=== PATIENT | female | born 1985 | race African-American/Black ===

== ENCOUNTER 2020-07-10 11:09 | Outpatient (CLI) | payer OTHER ==
[2020-07-10 16:39] VITALS: BP 121/75
== END 2020-07-10 17:31 | disposition home or self-care (01) ==
LOC: LAB 11:09 → APU 16:07 → LAB 17:31
PROVIDERS: ATTEND Advanced Practice Midwife
DX: O26.893 Other specified pregnancy related conditions, third trimester (principal); Z67.41 Type O blood, Rh negative; Z3A.29 29 weeks gestation of pregnancy
CPT/HCPCS: 59025; 86850; 86900; 86901; 96372; J2790

== ENCOUNTER 2020-07-24 16:45 | Outpatient (CLI) | payer OTHER ==
[2020-07-24 18:05] VITALS: BP 110/62
[2020-07-24] MEDS ORDERED: LACTATED RINGERS 1,000 ML IV ONE (19:03)
[2020-07-24 19:37] LABS: Bacteria,Urine 4+ /HPF (Negative); Bilirubin,Urine NEG (Negative); Blood,Urine MOD (Negative); Color,Urine Yellow (Yellow); Mucus,Urine 2+ /HPF; Urobilinogen,Urine < 2.0 mg/dL (<2.0)
[2020-07-24] MEDS ORDERED: cefTRIAXone/NS 1 GM/50 ML 1 GM/50 ML BAG IV ONE (21:00)
== END 2020-07-24 22:10 | disposition home or self-care (01) ==
LOC: NM 16:45 → APU 16:47 → NM 22:10
DX: O26.893 Other specified pregnancy related conditions, third trimester (principal); M54.5 Low back pain; M79.651 Pain in right thigh; O09.523 Supervision of elderly multigravida, third trimester; O47.03 False labor before 37 completed weeks of gestation, third trimester; Z3A.31 31 weeks gestation of pregnancy
CPT/HCPCS: 59025; 81001; 87086; 96361; 96365; J0696; J7120; 96360

== ENCOUNTER 2020-09-12 12:42 | Outpatient (CLI) | payer OTHER ==
[2020-09-12 15:50] VITALS: BP 104/59
--- NOTE | 2020-09-12 17:10 | Ultrasound Report ---
ULTRASOUND OBSTETRIC LIMITED ULTRASOUND BIOPHYSICAL PROFILE INDICATION / CLINICAL INFORMATION: well-being. Decreased movement. PATRICE Clinical Gestational Age (GA): 37.4 weeks.days COMPARISON: None available. FINDINGS: BREATHING MOVEMENT = 2 GROSS BODY MOVEMENT = 2 TONE = 2 QUALITATIVE AMNIOTIC FLUID VOLUME = 2 TOTAL BIOPHYSICAL SCORE = 8/8 HEART RATE (beats per minute): 143 AMNIOTIC FLUID INDEX (cm) = 7.9 (normal = 7-24 cm) PRESENTATION: Cephalic. ADDITIONAL FINDINGS: None. IMPRESSION: 1. Biophysical Score = 8/8 2. PATRICE 7.9 cm. Signer Name: Eric Lawler MD Signed: 09/12/2020 5:05 PM Workstation Name: [id number]
== END 2020-09-12 16:37 | disposition home or self-care (01) ==
LOC: TRG 12:42 → APU 12:44 → TRG 16:37
DX: Z34.93 Encounter for supervision of normal pregnancy, unspecified, third trimester (principal); Z3A.38 38 weeks gestation of pregnancy
CPT/HCPCS: 76815; 76819

== ENCOUNTER 2020-09-16 15:29 | Inpatient (IN) | payer MEDICAID, OTHER ==
[2020-09-16] MEDS ORDERED: CARBOPROST TROMETHAMINE 250 MCG/1 ML INJ IM PRN (19:28)
[2020-09-16] MEDS ORDERED: LOPERAMIDE 2 MG CAP PO PRN (19:28)
[2020-09-16] MEDS ORDERED: METHYLERGONOVINE MALEATE 0.2 MG/ML VIAL IM PRN (19:28)
[2020-09-16] MEDS ORDERED: ACETAMINOPHEN 325 MG TAB PO PRN (19:28)
[2020-09-16] MEDS ORDERED: LIDOCAINE (2%) 20 MG/1 ML VIAL 20 ML MDV INFILTRATI ONE (19:28)
[2020-09-16] MEDS ORDERED: ePHEDrine SULFATE 50 MG/1 ML INJ IV PRN ×2 (19:28→23:14)
[2020-09-16] MEDS ORDERED: MINERAL OIL 30 ML ORAL LIQD PO PRN (19:28)
[2020-09-16] MEDS ORDERED: miSOPROStol 200 MCG TAB PR PRN (19:28)
[2020-09-16] MEDS ORDERED: fentaNYL 100 MCG/2 ML INJ IV PRN (19:28)
[2020-09-16] MEDS ORDERED: TERBUTALINE 1 MG/1 ML INJ SUB-Q PRN (19:28)
[2020-09-16] MEDS ORDERED: NalbUPHINE 10 MG/1 ML INJ IV PRN (19:28)
[2020-09-16] MEDS ORDERED: PROMETHAZINE 25 MG TAB PO PRN (19:28)
[2020-09-16] MEDS ORDERED: OXYTOCIN 10 UNIT/1 ML INJ IM PRN (19:28)
[2020-09-16] MEDS ORDERED: LACTATED RINGERS 1,000 ML IV SCH (19:30)
[2020-09-16] MEDS ORDERED: OXYTOCIN DRIP 30 UNITS/500 ML BAG IV SCH ×2 (20:00)
[2020-09-16 20:34] LABS: Hematocrit 27.7 % (30.3-42.9); Hemoglobin 8.6 gm/dl (10.1-14.3); Mean Corpuscular HGB Conc 31 % (30-34); Red Blood Count 4.14 M/mm3 (3.65-5.03); Red Cell Distribution Width 18.8 % (13.2-15.2)
[2020-09-16 20:46] LABS: Mean Corpuscular Volume 67 fl (79-97); Platelet Count 435 K/mm3 (140-440)
[2020-09-16] MEDS ORDERED: AMPICILLIN/NS 2 GM/100 ML 2 GM/100 ML BAG IV ONE (21:00)
[2020-09-16] MEDS ORDERED: GENTAMICIN/NS 100 MG/100 ML 100 MG/100 ML BAG IV ONE (22:17)
--- NOTE | 2020-09-16 23:02 | History and Physical Report ---
History of Present Illness Date of examination: 09/16/20 Date of admission: 09/16/20 19:28 Chief complaint: lower abd pain and leakage of fluid in triage History of present illness: at 38.2wks by LMP c/w U/S. care at [facility] and [facility]. U/S with bilateral hydronephrosis, that was persistent on the left at 36wks gestation. Pt here for painful ctx and while in triage she had PROM hence admission. Pt admitted to movement, denies vag bleed or headache. Pt was Rh negative and order given for rhogam on 07/02/20. Rubella immune, HIV and RPR and HepBsAg neg. GC/Chlam neg. Past History Past Medical History: no pertinent history Past Surgical History: no surgical history Family/Genetic History: none Social history: no significant social history - Obstetrical History Expected Date of Delivery: 09/29/20 Actual Gestation: 38 Week(s) 2 Day(s) : 2 Hx # Term Pregnancies: 1 Number of Living Children: 1 Medications and Allergies Allergies Allergy/AdvReac Type Severity Reaction Status Date / Time No Known Allergies Allergy Verified 07/24/20 19:03 Home Medications Medication Instructions Recorded Confirmed Last Taken Type No Known Home Medications [No 09/16/20 09/16/20 Unknown History Reported Home Medications] Active Meds: Active Medications Acetaminophen (Acetaminophen 325 Mg Tab) 650 mg PO Q4H PRN PRN Reason: Pain, Mild (1-3) Carboprost Tromethamine (Carboprost Tromethamine 250 Mcg/1 Ml Inj) 250 mcg IM ONCE PRN PRN Reason: Uterine Bleeding Ephedrine Sulfate (Ephedrine Sulfate 50 Mg/1 Ml Inj) 10 mg IV Q2M PRN PRN Reason: Hypotension Fentanyl (Fentanyl 100 Mcg/2 Ml Inj) 100 mcg IV Q2H PRN PRN Reason: Pain,Severe (7-10) LABOR PAIN Oxytocin/Sodium Chloride (Pitocin/Ns 30 Unit/500ml) 30 units in 500 mls @ 2 mls/hr IV TITR NELIDA; Protocol Last Titration: 09/16/20 22:30 Dose: 4 mls/hr, 4 mls/hr Documented by: Lactated Ringer's (Lactated Ringers) 1,000 mls @ 125 mls/hr IV DIRECT NELIDA Last Admin: 09/16/20 20:47 Dose: 125 mls/hr Documented by: Oxytocin/Sodium Chloride (Pitocin/Ns 30 Unit/500ml) 30 units in 500 mls @ 40 m ls/hr IV TITR NELIDA; Protocol Ampicillin Sodium (Ampicillin/Ns 1 Gm/50 Ml) 1 gm in 50 mls @ 100 mls/hr IV Q4H NELIDA; Protocol Loperamide HCl (Loperamide 2 Mg Cap) 2 mg PO ONCE PRN PRN Reason: give with Hemabate Methylergonovine Maleate (Methylergonovine Maleate 0.2 Mg/Ml Vial) 0.2 mg IM ONCE PRN PRN Reason: Uterine Bleeding Mineral Oil (Mineral Oil 30 Ml Oral Liqd) 30 ml PO QHS PRN PRN Reason: Constipation Misoprostol (Misoprostol 200 Mcg Tab) 800 mcg AL ONCE PRN PRN Reason: Uterine Bleeding Nalbuphine HCl (Nalbuphine 10 Mg/1 Ml Inj) 10 mg IV Q2H PRN PRN Reason: Pain, Moderate (4-6) Oxytocin (Oxytocin 10 Unit/1 Ml Inj) 10 unit IM ONCE PRN PRN Reason: Uterine Bleeding Promethazine HCl (Promethazine 25 Mg Tab) 25 mg PO Q6H PRN PRN Reason: Nausea And Vomiting Terbutaline Sulfate (Terbutaline 1 Mg/1 Ml Inj) 0.25 mg SUB-Q ONCE PRN PRN Reason: Hyperstimulation/Hypertonicity Review of Systems All systems: negative (abdominal pain and leakage of fluid while in triage) - Vital Signs Vital signs: Vital Signs Temp Pulse Resp BP Pulse Ox 98.2 F 101 H 16 119/69 98 09/16/20 16:36 09/16/20 16:36 09/16/20 16:36 09/16/20 16:36 09/16/20 16:36 Temp Pulse Resp BP Pulse Ox 98.6 F 99 H 16 118/74 99 09/16/20 19:54 09/16/20 22:53 09/16/20 16:36 09/16/20 22:40 09/16/20 22:53 - Physical Exam Breasts: Positive: deferred Cardiovascular: Regular rate Lungs: Positive: Normal air movement Abdomen: Positive: soft Genitourinary (Female): Positive: normal external genitalia Vulva: both: normal Vagina: Positive: normal moisture Uterus: Positive: enlarged (non-tender gravid) Extremities: Positive: normal - Obstetrical FHR: category 1 Uterine Contraction Monitor Mode: External Cervical Dilatation: 3 Cervical Effacement Percentage: 50 station: -3 Uterine Contraction Pattern: Irregular Results Result Diagrams: 09/16/20 18:54 Abnormal lab results 09/16/20 Range/Units 18:54 WBC 20.3 H (4.5-11.0) K/mm3 Hgb 8.6 L (10.1-14.3) gm/dl Hct 27.7 L (30.3-42.9) % MCV 67 L (79-97) fl MCH 21 L (28-32) pg RDW 18.8 H (13.2-15.2) % All other labs normal. Assessment and Plan Term IUP in latent labor, Premature ROM, leucocytosis with unknown cause 1. Admits to labor and delivery 2. Will give both amp and gent with wbc>20.5 3. Pitocin augmentation 4. Epidural when pt desires 5. Rhogam if fetus Rh positive with FOB status unknown Expect
[2020-09-16] MEDS ORDERED: NALOXONE 2 MG/2 ML INJ IV PRN (23:14)
--- NOTE | 2020-09-16 23:14 | Anesthesia Consultation ---
Anesthesia Consult and Med Hx Date of service: 09/16/20 - Airway Anesthetic Teeth Evaluation: Good ROM Head & Neck: Adequate Mental/Hyoid Distance: Adequate Mallampati Class: Class II Intubation Access Assessment: Probably Good - Pulmonary Exam CTA: Yes - Cardiac Exam Cardiac Exam: RRR - Pre-Operative Health Status ASA Pre-Surgery Classification: ASA2 Proposed Anesthetic Plan: Epidural - Pulmonary Hx Asthma: No - Cardiovascular System Hx Hypertension: No - Central Nervous System Hx Seizures: No Hx Psychiatric Problems: No - Endocrine Hx Renal Disease: No Hx Hypothyroidism: No Hx Hyperthyroidism: No - Hematic Hx Anemia: No Hx Sickle Cell Disease: No - Other Systems Hx Alcohol Use: No
[2020-09-16] MEDS ORDERED: fentaNYL-BUPIV 2 MCG/ML-0.125% 200 MCG/100 ML BAG EPIDURAL SCH (23:45)
--- NOTE | 2020-09-16 23:45 | Progress Note ---
Labor Epidural - Labor Epidural Start Time: 23:30 Stop Time: 23:36 Performed by:: ROHIT JACOBS Procedure: Patient is requesting epidural for labor pain. H&P, and labs reviewed. Procedure explained, questions answered, consent obtained. Patient in sitting position with blood pressure cuff and pulse ox on and working. Timeout performed immediately before start of procedure. Sterile chlorahexadine 0.5% prep/drape. 3 mL 1% lidocaine skin wheal at L[3]-L[4]. 18-gauge TechForwardtead epidural needle advanced to [id number] with saline at [7] cm. 27-gauge spinal needle advanced until clear, free-flowing CSF. Intrathecal dexmedetomidine [5] mcg administered and needle removed. Epidural catheter advanced to [12] cm, negative aspiration for blood and csf, negative test dose 3 ml 1.5% lidocaine with epinephrine. Sterile steri-strips and tegaderm applied, followed by tape reinforcement. Patient tolerated procedure well.
[2020-09-16] MEDS ORDERED: AMPICILLIN/NS 1 GM/50 ML 1 GM/50 ML BAG IV SCH (23:59)
[2020-09-17] MEDS ORDERED: oxyCODONE /ACETAMINOPHEN 5-325MG TAB PO PRN (04:41)
[2020-09-17] MEDS ORDERED: PROMETHAZINE 25 MG RECT SUPP PR PRN (04:41)
[2020-09-17] MEDS ORDERED: PROMETHAZINE 25 MG TAB PO PRN (04:41)
[2020-09-17] MEDS ORDERED: MAGNESIUM HYDROXIDE (MOM) ORAL LIQD UDC PO PRN (04:41)
[2020-09-17] MEDS ORDERED: LANOLIN/ZINC/DIMETHICONE (LANSINOH) 7 GM TP PRN (04:41)
[2020-09-17] MEDS ORDERED: diphenhydrAMINE 25 MG CAP PO PRN (04:41)
[2020-09-17] MEDS ORDERED: ONDANSETRON 4 MG/2 ML INJ IV PRN (04:41)
--- NOTE | 2020-09-17 04:56 | Procedure Note ---
OB Delivery Note - Delivery Date of Delivery: 09/17/20 Surgeon: VINNY RING Estimated blood loss: other (QBL 663cc by nurse) - Vaginal Delivery presentation: vertex Delivery position: OA Intrapartum events: hemorrhage, uterine atony, other(please specify) (vaginal posterior wall cyst draining creamy non-odorous fluid) Delivery induction: none Delivery augmentation: pitocin Delivery monitor: external FHT, external uterine Route of delivery: vacuum extraction Indicators for instrumentation: maternal exhaustion Delivery placenta: spontaneous Episiotomy: mediolateral (right mediolateral) Delivery repair: chromic Anesthesia: epidural Delivery comments: Pt complete after allowed to labor down, pt pushing and exhausted. Verbal consent obtained for vacuum assisted delivery and same done with 2 pop-off and right mediolateral episiotomy, viable infant delivered uncomplicated. Epidural turned off earlier so that pt could focus and how to push effectively. Spontaneous delivery of intact placenta that was heart shaped and fractured and therefore placenta appeared bilobed and same sent to pathology. Pt now when asked admits to previous hemorrhage. Cytotec 800mcg given per rectum. Episiotomy repaired with 2-0 running locked sutures and white creamy fluid noted from posterior wall. Rectovag exam done and no rectal abscess noted. This is possibly the cause for leucocytosis. Will give amp/gent/clinda . The perineal skin repaired with 2-0 chromic subcutaneously. Baby taken to NICU with APGARS 8/8 and baby having some difficulty breathing per [facility] team. Umbilical artery gas collected - Infant A at 1 minute: 8 (wt 3130g; clear amniotic fluid; Umb artery gas by NICU 7.37 and BE -5; specimen I collected inadvertently left in the room by the nurse) at 5 minutes: 8 Gender: Male
[2020-09-17] MEDS: IBUPROFEN 600 MG TAB PO SCH ×2 (07:20→12:14)
[2020-09-17] MEDS: WITCH HAZEL/ GLYCERIN PAD TP PRN ×2 (07:27→12:15)
--- NOTE | 2020-09-17 09:07 | Progress Note ---
Assessment and Plan A: S/P VAD with PPH P: Continue routine pp orders Awaiting CBC results D/C home within 24-48 hours if stable Subjective - Subjective Date of service: 09/17/20 Principal diagnosis: s/p vaccum assisted delivery Patient reports: appetite normal, voiding normally, pain well controlled, ambulating normally, other (pt denies dizziness or weakness) : doing well, bottle feeding Objective - Vital Signs Latest vital signs: Vital Signs Temp Pulse Resp BP BP Pulse Ox Pulse Ox 09/17/20 07:49 100.0 F H 80 16 113/58 99 09/17/20 06:25 100.9 F H 86 18 111/60 99 99 09/17/20 06:10 94 H 107/58 09/17/20 06:09 108 H 107/53 09/17/20 05:47 89 99 09/17/20 05:42 88 112/58 100 09/17/20 05:37 79 100 09/17/20 05:32 90 100 09/17/20 05:27 91 H 100 09/17/20 05:22 93 H 100 09/17/20 05:17 88 100 09/17/20 05:12 94 H 100 09/17/20 05:07 92 H 100 09/17/20 05:02 99 H 99 09/17/20 04:59 54 L 83 L 09/17/20 04:57 95 H 99 09/17/20 04:52 100 H 99 09/17/20 04:51 91 H 103/61 09/17/20 04:47 92 H 100 09/17/20 04:42 93 H 99 09/17/20 04:37 91 H 99 09/17/20 04:36 96 H 104/58 09/17/20 04:32 109 H 99 09/17/20 04:27 107 H 99 09/17/20 04:22 97 H 100 09/17/20 04:21 104 H 108/56 09/17/20 04:20 102 H 108/56 100 09/17/20 04:17 101 H 100 09/17/20 04:12 102 H 100 09/17/20 04:07 86 100 09/17/20 04:06 90 108/55 09/17/20 04:05 90 18 108/55 100 09/17/20 04:02 94 H 100 09/17/20 03:57 88 100 09/17/20 03:56 82 113/56 09/17/20 03:52 90 100 09/17/20 03:51 92 H 99/54 09/17/20 03:50 94 H 108/55 100 09/17/20 03:38 85 104/58 09/17/20 03:35 82 18 113/56 100 09/17/20 03:20 92 H 18 99/54 100 09/17/20 03:15 98.7 F 85 20 104/58 100 09/17/20 03:08 112 H 100 09/17/20 03:03 94 H 100 09/17/20 02:58 95 H 100 09/17/20 02:53 107 H 100 09/17/20 02:48 109 H 100 09/17/20 02:43 96 H 100 09/17/20 02:38 105 H 122/56 100 09/17/20 02:33 96 H 100 09/17/20 02:28 109 H 99 09/17/20 02:23 101 H 99 09/17/20 02:18 102 H 100 09/17/20 02:13 95 H 100 09/17/20 02:08 95 H 100 09/17/20 02:03 87 100 09/17/20 01:58 78 99 09/17/20 01:53 92 H 99 09/17/20 01:48 86 100 09/17/20 01:43 108 H 100 09/17/20 01:39 92 H 106/61 09/17/20 01:38 83 99 09/17/20 01:33 85 99 09/17/20 01:28 81 98 09/17/20 01:23 94 H 99 09/17/20 01:18 92 H 99 09/17/20 01:13 97 H 98 09/17/20 01:10 95 H 114/65 09/17/20 01:08 94 H 100 09/17/20 01:03 90 99 09/17/20 00:58 87 99 09/17/20 00:53 82 99 09/17/20 00:48 87 98 09/17/20 00:43 82 98 09/17/20 00:38 83 112/60 99 09/17/20 00:33 83 99 09/17/20 00:28 95 H 99 09/17/20 00:23 101 H 99 09/17/20 00:22 85 117/64 09/17/20 00:18 90 100 09/17/20 00:13 101 H 100 09/17/20 00:08 102 H 115/61 100 09/17/20 00:07 92 H 109/58 09/17/20 00:05 96 H 114/58 09/17/20 00:03 95 H 112/56 99 09/17/20 00:01 96 H 112/59 09/16/20 23:58 92 H 121/57 99 09/16/20 23:57 89 118/60 09/16/20 23:54 101 H 113/55 09/16/20 23:53 93 H 115/56 100 09/16/20 23:50 105 H 109/56 09/16/20 23:49 113 H 114/61 09/16/20 23:48 115 H 99 09/16/20 23:47 82 123/57 09/16/20 23:44 121 H 111/57 09/16/20 23:43 91 H 100 09/16/20 23:41 93 H 108/72 09/16/20 23:39 102 H 115/63 09/16/20 23:38 107 H 99 09/16/20 23:36 104 H 116/65 09/16/20 23:35 106 H 114/66 09/16/20 23:33 105 H 99 09/16/20 23:32 110 H 113/60 09/16/20 23:28 104 H 100 09/16/20 23:23 94 H 98 09/16/20 23:18 90 99 09/16/20 23:13 91 H 99 09/16/20 23:10 96 H 120/70 09/16/20 23:08 99 H 99 09/16/20 23:03 93 H 99 09/16/20 22:58 97 H 99 09/16/20 22:53 99 H 99 09/16/20 22:48 99 H 99 09/16/20 22:43 94 H 99 09/16/20 22:40 101 H 118/74 09/16/20 22:38 96 H 99 09/16/20 22:33 102 H 98 09/16/20 22:28 113 H 99 09/16/20 22:23 107 H 99 09/16/20 22:18 109 H 99 09/16/20 22:13 103 H 99 09/16/20 22:10 113 H 117/68 09/16/20 22:08 99 H 99 09/16/20 22:03 96 H 99 09/16/20 21:58 103 H 98 09/16/20 21:53 91 H 98 09/16/20 21:48 107 H 99 09/16/20 21:43 95 H 99 09/16/20 21:40 103 H 120/68 09/16/20 21:38 92 H 99 09/16/20 21:33 105 H 98 09/16/20 21:28 102 H 98 09/16/20 21:23 102 H 98 09/16/20 21:18 108 H 99 09/16/20 21:13 103 H 99 09/16/20 21:10 107 H 120/70 09/16/20 21:08 123 H 98 09/16/20 21:03 93 H 99 09/16/20 20:58 96 H 98 09/16/20 20:53 94 H 98 09/16/20 20:48 111 H 98 09/16/20 20:43 124 H 99 09/16/20 20:40 97 H 123/69 09/16/20 20:38 121 H 99 09/16/20 20:33 104 H 98 09/16/20 20:28 107 H 99 09/16/20 20:23 119 H 99 09/16/20 20:18 102 H 98 09/16/20 20:13 105 H 98 09/16/20 20:11 100 H 140/70 09/16/20 20:08 93 H 98 09/16/20 20:03 106 H 99 09/16/20 19:58 114 H 99 09/16/20 19:54 98.6 F 96 H 120/76 99 09/16/20 19:42 100 09/16/20 19:26 108 H 99 09/16/20 19:21 89 98 09/16/20 19:16 87 99 09/16/20 19:11 95 H 99 09/16/20 19:06 92 H 99 09/16/20 19:01 95 H 100 09/16/20 18:56 88 99 09/16/20 18:51 92 H 98 09/16/20 18:46 98 H 98 09/16/20 18:41 82 99 09/16/20 18:36 106 H 99 09/16/20 18:31 107 H 98 09/16/20 18:26 96 H 99 09/16/20 18:21 95 H 97 09/16/20 18:16 99 H 98 09/16/20 18:11 114 H 98 09/16/20 18:06 96 H 98 09/16/20 18:01 86 98 09/16/20 17:56 97 H 99 09/16/20 17:51 114 H 98 09/16/20 17:46 100 H 99 09/16/20 17:41 104 H 99 09/16/20 17:36 98 H 98 09/16/20 17:31 109 H 98 09/16/20 17:26 85 97 09/16/20 17:21 106 H 98 09/16/20 17:16 101 H 98 09/16/20 16:54 94 H 98 09/16/20 16:49 104 H 99 09/16/20 16:44 105 H 98 09/16/20 16:39 97 H 98 09/16/20 16:38 90 119/69 09/16/20 16:36 98.2 F 101 H 16 119/69 98 Intake and Output 09/16/20 09/17/20 09/17/20 22:59 06:59 14:59 Intake Total 1.5 26.033 Output Total 250 Balance 1.5 26.033 -250 Intake: IV 1.5 26.033 PITOCin/NS 30 UNIT/500ML 1.5 26.033 30 units In 500 ml @ 2 mls/hr IV TITR NELIDA Rx#: [id number] Output: Urine 250 Void 250 Other: Total, Output Amount 250 Weight 180 lb Estimated Blood Loss 663 - Exam Breasts: Present: normal Abdomen: Present: normal appearance, soft, normal bowel sounds Vulva: both: normal Uterus: Present: normal, firm, fundal height below umbilicus Extremities: Present: normal Incision: Present: normal, intact - Labs Labs: Abnormal lab results 09/16/20 Range/Units 18:54 WBC 20.3 H (4.5-11.0) K/mm3 Hgb 8.6 L (10.1-14.3) gm/dl Hct 27.7 L (30.3-42.9) % MCV 67 L (79-97) fl MCH 21 L (28-32) pg RDW 18.8 H (13.2-15.2) %
[2020-09-17] MEDS: PRENATAL VIT27-FE FUMARATE-FOLIC ACID VIT TAB PO SCH (09:58)
--- NOTE | 2020-09-17 12:54 | Post Anesthesia Evaluation ---
- Post Anesthesia Evaluation Patient Participated: Yes Airway Patent: Yes Stable Respiratory Function: Yes Nausea/Vomiting: No Temp > 96.8F: Yes Pain Manageable: Yes Adequeate Hydration: Yes Anesthesia Complications: No Block Receding Appropriately: Yes
[2020-09-17 18:04] LABS: Hemoglobin 8.1 gm/dl (10.1-14.3); Mean Corpuscular HGB Conc 32 % (30-34); Platelet Count 342 K/mm3 (140-440); Red Blood Count 3.84 M/mm3 (3.65-5.03); Red Cell Distribution Width 18.7 % (13.2-15.2)
[2020-09-17 18:10] LABS: Mean Corpuscular Volume 65 fl (79-97)
[2020-09-17] MEDS: FERROUS SULFATE 325 MG TAB PO SCH (22:11)
[2020-09-17] MEDS: AMPICILLIN/NS 2 GM/100 ML 2 GM/100 ML BAG IV SCH (22:12)
[2020-09-18] MEDS: AMPICILLIN/NS 2 GM/100 ML 2 GM/100 ML BAG IV SCH (05:54)
[2020-09-18] MEDS: IBUPROFEN 600 MG TAB PO SCH ×6 (06:00→23:00)
[2020-09-18] MEDS: FERROUS SULFATE 325 MG TAB PO SCH ×2 (09:22→22:47)
[2020-09-18] MEDS: PRENATAL VIT27-FE FUMARATE-FOLIC ACID VIT TAB PO SCH (09:22)
--- NOTE | 2020-09-18 10:36 | Progress Note ---
Assessment and Plan PPD#1 A: S/P VAD with PPH Asymptomatic anemia Leukocytosis Hypotension P: Continue routine pp care Repeat CBC Hospitalist consult re hypotension Advised foods high in Fe Continue Fe supplements Will reevaluate abt use after obtaining cbc results Subjective - Subjective Date of service: 09/18/20 Principal diagnosis: s/p vaccum assisted delivery Patient reports: appetite normal, voiding normally, pain well controlled, ambulating normally, other (denies dizziness or weakness ) : doing well, bottle feeding Objective - Vital Signs Latest vital signs: Vital Signs Temp Pulse Resp BP Pulse Ox Pulse Ox 09/18/20 10:00 0 L 09/18/20 08:25 98.2 F 09/18/20 07:32 98.2 F 62 18 96/51 97 09/18/20 06:00 18 09/18/20 00:21 98.2 F 65 20 94/49 99 09/18/20 00:19 61 85/39 98 09/18/20 00:00 18 09/17/20 21:36 18 09/17/20 20:36 20 09/17/20 20:15 100 09/17/20 15:58 98.2 F 78 16 104/58 99 09/17/20 12:17 98.3 F 83 16 98/52 98 Intake and Output 09/17/20 09/18/20 09/18/20 22:59 06:59 14:59 Intake Total 650 340 Balance 650 340 Intake: IV 50 100 AMPICILLIN/NS 2 GM/100 ML 100 2 gm In 100 ml @ 100 mls /hr IV Q6H NELIDA Rx#: [id number] CLEOCIN 900 MG/50 mL 900 50 mg In 50 ml @ 100 mls/hr IV Q8H NELIDA Rx#:[id number] Oral 360 Intake, Free Water 240 240 Other: Total, Intake Amount 360 # Voids Void 1 1 - Exam Breasts: Present: normal Abdomen: Present: normal appearance, soft, normal bowel sounds Vulva: both: normal Uterus: Present: normal, firm, fundal height below umbilicus Extremities: Present: normal Incision: Present: normal, intact - Labs Labs: Abnormal lab results 09/17/20 Range/Units 17:21 WBC 21.8 H (4.5-11.0) K/mm3 Hgb 8.1 L (10.1-14.3) gm/dl Hct 25.0 L (30.3-42.9) % MCV 65 L (79-97) fl MCH 21 L (28-32) pg RDW 18.7 H (13.2-15.2) %
[2020-09-18] MEDS ORDERED: BENZOCAINE 20% TOP SPRAY 0.5 ML UNIT DOSE MM NR (11:00)
--- NOTE | 2020-09-18 12:58 | Consultation ---
History of Present Illness - Reason for Consult Consult date: 09/18/20 hypotension Requesting physician: VINNY RING - History of Present Illness 35 yo F with pmhx of iron deficiency anemia, presenting initially at 38.2 wk to OB service for lower abdominal pain and vaginal discharge. Patient was admitted to L&D service after determination that she had PROM, leukocytosis. Vaginal delivery with episiotomy and vacuum assisted delivery of baby boy was completed. Delivery was complicated with post hemorrhage, with approximately 700 cc blood loss. Hospitalist service consulted for medical management of hypotension. Last blood pressure was documented 96/51. Patient was resting at beside on encounter. was present as well. She stated was feeling dizzy and lightheaded. She had just returned from the restroom and was feeling nausea and had one episode of emesis after her meal. She denied any diarrhea but stated that she had constipation which she states she has been experiencing since starting iron supplementation. She also admitted to mild epigastric abdominal pain and states that she has a history of GERD, especially during her . She denied taking any medication for this. She stated that she also had symptoms of fevers and chills which were present on admission but these symptoms have subsided today. She does continue to feel weak and notes some green and bloody vaginal discharge. She states that the episiotomy site continues to be painful and she is concerned about the vaginal discharge. We discussed need for antibiotics but patient continues to refuse stating that they are making her feel worse and give her a headache. Educated on need for antibiotics in light of PROM. While she did state she did not want current regimen, she was open to alternative regimens if offered. Past History Past Medical History: anemia, other ( ) Past Surgical History: No surgical history Social history: no significant social history Family history: no significant family history Medications and Allergies Allergies Allergy/AdvReac Type Severity Reaction Status Date / Time No Known Allergies Allergy Verified 07/24/20 19:03 Home Medications Medication Instructions Recorded Confirmed Last Taken Type No Known Home Medications [No 09/16/20 09/16/20 Unknown History Reported Home Medications] Active Meds: Active Medications Acetaminophen (Acetaminophen 325 Mg Tab) 650 mg PO Q4H PRN PRN Reason: Pain, Mild (1-3) Last Admin: 09/17/20 20:36 Dose: 650 mg Documented by: Benzocaine (Benzocaine 20% [place] 0.5 Ml Unit Dose) 1 spray MM PREOP NR Stop: 09/18/20 21:00 Bisacodyl (Bisacodyl 10 Mg Rect Supp) 10 mg PA BID PRN PRN Reason: Constipation Diphenhydramine HCl (Diphenhydramine 25 Mg Cap) 25 mg PO Q6H PRN PRN Reason: Itching Docusate Sodium (Docusate Sodium 100 Mg Cap) 100 mg PO BID NELIDA Ferrous Sulfate (Ferrous Sulfate 325 Mg Tab) 325 mg PO BID NELIDA Last Admin: 09/18/20 09:22 Dose: 325 mg Documented by: Oxytocin/Sodium Chloride (Pitocin/Ns 30 Unit/500ml) 30 units in 500 mls @ 2 mls/hr IV TITR NELIDA; Protocol Last Titration: 09/17/20 01:45 Dose: 14 mls/hr, 14 mls/hr Documented by: Lactated Ringer's (Lactated Ringers) 1,000 mls @ 125 mls/hr IV DIRECT NELIDA Last Admin: 09/16/20 20:47 Dose: 125 mls/hr Documented by: Clindamycin HCl (Cleocin 900 Mg/50 Ml) 900 mg in 50 mls @ 100 mls/hr IV Q8H NELIDA; Protocol Last Admin: 09/18/20 05:54 Dose: 100 mls/hr Documented by: Gentamicin Sulfate 410 mg/ (Sodium Chloride) 110.25 mls @ 200 mls/hr IV Q24H NELIDA; Protocol Lactated Ringer's (Lactated Ringers) 1,000 mls @ 100 mls/hr IV DIRECT NELIDA Stop: 09/19/20 22:44 Ibuprofen (Ibuprofen 600 Mg Tab) 600 mg PO Q6HR NELIDA Last Admin: 09/18/20 06:00 Dose: Not Given Documented by: Loperamide HCl (Loperamide 2 Mg Cap) 2 mg PO ONCE PRN PRN Reason: give with Hemabate Magnesium Hydroxide (Magnesium Hydroxide (Mom) Oral Liqd Udc) 30 ml PO HS PRN PRN Reason: Constipation Last Admin: 09/18/20 09:22 Dose: 30 ml Documented by: Methylergonovine Maleate (Methylergonovine Maleate 0.2 Mg/Ml Vial) 0.2 mg IM ONCE PRN PRN Reason: Uterine Bleeding Mineral Oil (Mineral Oil 30 Ml Oral Liqd) 30 ml PO QHS PRN PRN Reason: Constipation Multi-Ingredient Ointment (Lanolin/Zinc/Dimethicone (Lansinoh) 7 Gm) 1 applic TP PRN PRN PRN Reason: Sore Nipples Multivitamins/Iron/Calcium ( Fga69-Sw Fumarate-Folic Acid Vit Tab) 1 each PO QDAY NELIDA Last Admin: 09/18/20 09:22 Dose: 1 each Documented by: Naloxone HCl (Naloxone 2 Mg/2 Ml Inj) 0.2 mg IV Q5M PRN PRN Reason: Respiratory sedation Ondansetron HCl (Ondansetron 4 Mg/2 Ml Inj) 4 mg IV Q8H PRN PRN Reason: Nausea And Vomiting Last Admin: 09/18/20 06:01 Dose: 4 mg Documented by: Oxycodone/Acetaminophen (Oxycodone /Acetaminophen 5-325mg Tab) 2 tab PO Q6H PRN PRN Reason: Pain, Moderate (4-6) Last Admin: 09/17/20 16:24 Dose: 2 tab Documented by: Oxytocin (Oxytocin 10 Unit/1 Ml Inj) 10 unit IM ONCE PRN PRN Reason: Uterine Bleeding Promethazine HCl (Promethazine 25 Mg Tab) 25 mg PO Q6H PRN PRN Reason: Nausea And Vomiting Promethazine HCl (Promethazine 25 Mg Tab) 25 mg PO Q6H PRN PRN Reason: Nausea And Vomiting Witch Kimmie/Glycerin (Witch Kimmie/ Glycerin Pad) 1 each TP PRN PRN PRN Reason: Hemorrhoid/cleansing/soothing Last Admin: 09/17/20 12:15 Dose: 1 each Documented by: Review of Systems All systems: negative (fatigue, weakness, nausea, vomiting constipation. refer to HPI) Exam - Physical Exam Narrative exam: Physical Exam: Constitutional: Alert, cooperative. eye sunken, appears tired Head, Ears, Nose: Normocephalic, atraumatic. External ears, nose normal Eyes: Conjunctivae/corneas clear. No icterus. No ptosis. Neck: Supple, no meningeal signs Oral: dentition fair, no thrush, dry oral mucosa Cardiovascular: tachycardic, regular rhythm. S1, S2 normal. Respiratory: Good air entry, clear to auscultation bilaterally GI: Soft, mild epigastric tenderness; bowel sounds normal. No peritoneal signs. : exam declined Musculoskeletal: No pedal edema, no cyanosis. Skin: pale skin Hem/Lymphatic: No palpable cervical or supraclavicular nodes. No lymphangitis Psych: Mood ok. Affect normal Neurological: Awake, alert, oriented. No gross abnormality - Constitutional Vitals: Temp Pulse Resp BP Pulse Ox 98.2 F 62 18 96/51 0 L 09/18/20 08:25 09/18/20 07:32 09/18/20 07:32 09/18/20 07:32 09/18/20 10:00 Results - Labs CBC & Chem 7: 09/17/20 17:21 Labs: Abnormal lab results 09/17/20 Range/Units 17:21 WBC 21.8 H (4.5-11.0) K/mm3 Hgb 8.1 L (10.1-14.3) gm/dl Hct 25.0 L (30.3-42.9) % MCV 65 L (79-97) fl MCH 21 L (28-32) pg RDW 18.7 H (13.2-15.2) % Assessment and Plan # Hypotension - last bp 96/51, MAP > 60 - etiology: blood/fluid loss from , vomiting vs infection..concern for resistant GBS isolate in addition to patient abx refusal. - continuous tele ordered, vitals q8hr - LR @100 IV x 2 1L bags # SIRS - PROM on admission, unclear GBS status on admission but treated - Temp 101.1 F on 09/16, wbc count 21.8K, tachycardic on encounter - currently on gentamicin, ampicillin, clindamycin, however patient is refusing antibiotic regimen. - blood culture, urine culture ordered - consider Unasyn 3g IV q6hr as alternative regimen if concerned for GBS isolate resistance # Vomiting - unable to tolerate PO, complained of GERD symptoms even prior to admission - IVF as above - prn zofran - check CMP for liver function, electrolytes - clear liquid diet for now, advance as tolerated - protonix IV q day, can transition to po once patient able to tolerate. # Premature Rupture of Membranes - present on admission, GBS status was unclear per chart review - s/p delivery now - treated on presentation with ampicillin # Blood Loss Anemia - patient was iron deficient from history prior to . Loss of blood from this - vaginal bleeding has slowed down significantly. - last hgb: 8.1, plt: 342 - monitor H/H, PT/INR, PTT ordered - patient is type and screen - recommend transfusion prn hgb < 7 # Post Hemorrhage - approx 700 cc blood loss - Typed and Screened - HGB currently stable, MAPS > 60 - prn methergyne and pitocin. - management per OBGYN # S/p Vaginal delivery
[2020-09-18] MEDS ORDERED: ONDANSETRON 4 MG/2 ML INJ IV PRN (14:00)
[2020-09-18 15:44] LABS: Hematocrit 26.5 % (30.3-42.9); Hemoglobin 8.2 gm/dl (10.1-14.3); Mean Corpuscular HGB Conc 31 % (30-34); Platelet Count 353 K/mm3 (140-440); Red Blood Count 4.07 M/mm3 (3.65-5.03)
[2020-09-18 15:49] LABS: Mean Corpuscular Volume 65 fl (79-97)
[2020-09-18] MEDS: DOCUSATE SODIUM 100 MG CAP PO SCH ×2 (15:49→22:47)
[2020-09-18] MEDS: LACTATED RINGERS 1,000 ML IV SCH (15:50)
[2020-09-18 15:53] LABS: Partial Thromboplastin Time 26.5 Sec. (24.2-36.6)
[2020-09-18 16:03] LABS: Alanine Aminotransferase 13 units/L (7-56); Blood Urea Nitrogen 5 mg/dL (7-17); Calcium 9.1 mg/dL (8.4-10.2); Hemolysis Index 0
[2020-09-18 16:10] LABS: BUN/Creatinine Ratio 13
[2020-09-18 16:58] LABS: Anisocytosis Few; Hypochromasia 1+; Total Cells Counted 100
[2020-09-18] MEDS ORDERED: POTASSIUM CHLORIDE ER 20 MEQ TAB PO NR (17:00)
[2020-09-18] MEDS: PANTOPRAZOLE 40 MG INJ IV SCH (17:05)
[2020-09-18] MEDS ORDERED: BENZOCAINE/MENTHOL 20/0.5% TOP SPRAY 56 GM TP PRN (20:53)
--- NOTE | 2020-09-18 20:56 | Progress Note ---
Subjective Date of service: 09/18/20 Principal diagnosis: s/p vaccum assisted delivery Interval history: Consulted for possible PDPH. worse when upright, sensitive to light, and neck stiffness. No fevers or other signs of infection. Will treat medically and offer blood patch if not improved in AM. Objective - Constitutional Vitals: Vital Signs - 12hr 09/18/20 09/18/20 10:00 18:23 Temperature 97.9 F Pulse Rate 65 Respiratory 18 Rate Blood Pressure 109/64 O2 Sat by Pulse 98 Oximetry O2 Sat by Pulse 0 L Oximetry [ Anterior Bilateral Throughout] - Labs CBC & Chem 7: 09/18/20 15:20 09/18/20 15:20 Labs: Abnormal lab results 09/18/20 09/18/20 09/18/20 Range/Units 15:20 15:20 15:20 WBC 21.0 H (4.5-11.0) K/mm3 Hgb 8.2 L (10.1-14.3) gm/dl Hct 26.5 L (30.3-42.9) % MCV 65 L (79-97) fl MCH 20 L (28-32) pg RDW 19.0 H (13.2-15.2) % Seg Neuts % (Manual) 87.0 H (40.0-70.0) % Lymphocytes % (Manual) 8.0 L (13.4-35.0) % Seg Neutrophils # Man 18.3 H (1.8-7.7) K/mm3 Monocytes # (Manual) 1.1 H (0.0-0.8) K/mm3 Potassium 3.4 L (3.6-5.0) mmol/L BUN 5 L (7-17) mg/dL Creatinine 0.4 L 0.4 L (0.6-1.2) mg/dL Glucose 124 H (65-100) mg/dL Total Protein 6.0 L (6.3-8.2) g/dL Albumin 3.0 L (3.9-5) g/dL
[2020-09-18 21:52] LABS: Bilirubin,Urine NEG (Negative); Blood,Urine LG (Negative); Color,Urine Yellow (Yellow); Mucus,Urine 2+ /HPF; Urobilinogen,Urine < 2.0 mg/dL (<2.0)
[2020-09-18 22:04] LABS: RBC,Urine > 182.0 /HPF (0.0-6.0)
[2020-09-18] MEDS: BUTALB/ACETAMINOPHEN/CAFFEINE TAB PO PRN (22:44)
[2020-09-18] MEDS: NEOSTIGMINE 2 MG, ATROPINE 1 MG in SODIUM CHLORIDE 0.9% 100 ML IV SCH (22:44)
[2020-09-19] MEDS: GENTAMICIN 410 MG in SODIUM CHLORIDE 0.9% 100 ML IV SCH ×2 (00:17→00:39)
[2020-09-19] MEDS ORDERED: AMPICILLIN/NS 2 GM/100 ML 2 GM/100 ML BAG IV SCH (02:00)
[2020-09-19] MEDS: LACTATED RINGERS 1,000 ML IV SCH (03:48)
[2020-09-19] MEDS: IBUPROFEN 600 MG TAB PO SCH (05:10)
[2020-09-19] MEDS: NEOSTIGMINE 2 MG, ATROPINE 1 MG in SODIUM CHLORIDE 0.9% 100 ML IV SCH (07:17)
[2020-09-19] MEDS: BUTALB/ACETAMINOPHEN/CAFFEINE TAB PO PRN (07:39)
[2020-09-19] MEDS ORDERED: FLUCONAZOLE 100 MG TAB PO STA (08:42)
[2020-09-19] MEDS ORDERED: FLUCONAZOLE 200 MG TAB PO SCH (09:00)
--- NOTE | 2020-09-19 09:33 | Progress Note ---
Assessment and Plan PPD #2 A: S/P VAD with PPH Occ headaches Hypotension UTI Vag monique infection P: Continue routine pp care Diflucan rx D/C home per Dr Ortega Subjective - Subjective Date of service: 09/19/20 Principal diagnosis: s/p vaccum assisted delivery Patient reports: appetite normal, voiding normally, pain well controlled, flatus, ambulating normally, other (c/o occ headache otherwise states she's feeling much better) [place]: bottle feeding Objective - Vital Signs Latest vital signs: Vital Signs Temp Pulse Resp BP BP BP Pulse Ox 09/19/20 07:32 98.5 F 74 20 99/57 98 09/19/20 07:30 09/19/20 04:56 98.4 F 55 L 18 88/56 09/19/20 04:51 98.0 F 56 L 18 89/47 98 09/18/20 23:30 98.2 F 68 18 101/52 100 09/18/20 23:00 18 09/18/20 22:44 18 09/18/20 20:30 98.6 F 85 18 112/63 09/18/20 19:30 09/18/20 18:23 97.9 F 65 18 109/64 98 09/18/20 10:00 Pulse Ox 09/19/20 07:32 09/19/20 07:30 98 09/19/20 04:56 09/19/20 04:51 09/18/20 23:30 09/18/20 23:00 09/18/20 22:44 09/18/20 20:30 09/18/20 19:30 100 09/18/20 18:23 09/18/20 10:00 0 L Intake and Output 09/18/20 09/19/20 09/19/20 22:59 06:59 14:59 Intake Total 460 1373.333 Output Total 200 400 Balance 260 973.333 Intake: IV 1073.333 Gentamicin 410 mg In NaCl 73.333 0.9% 100 ml @ 200 mls/hr IV Q24H NELIDA Rx#: [id number] Lactated Ringers 1,000 ml 1000 @ 100 mls/hr IV DIRECT NELIDA Rx#:[id number] Oral 460 300 Output: Urine 200 400 Void 200 400 Other: Total, Intake Amount 200 200 Total, Output Amount 200 400 # Voids Void 1 - Exam Breasts: Present: normal Abdomen: Present: normal appearance, soft, normal bowel sounds Vulva: both: normal Uterus: Present: normal, firm, fundal height below umbilicus Extremities: Present: normal Incision: Present: normal, intact - Labs Labs: Abnormal lab results 09/18/20 09/18/20 09/18/20 Range/Units 15:20 15:20 15:20 WBC 21.0 H (4.5-11.0) K/mm3 Hgb 8.2 L (10.1-14.3) gm/dl Hct 26.5 L (30.3-42.9) % MCV 65 L (79-97) fl MCH 20 L (28-32) pg RDW 19.0 H (13.2-15.2) % Seg Neuts % (Manual) 87.0 H (40.0-70.0) % Lymphocytes % (Manual) 8.0 L (13.4-35.0) % Seg Neutrophils # Man 18.3 H (1.8-7.7) K/mm3 Monocytes # (Manual) 1.1 H (0.0-0.8) K/mm3 Potassium 3.4 L (3.6-5.0) mmol/L BUN 5 L (7-17) mg/dL Creatinine 0.4 L 0.4 L (0.6-1.2) mg/dL Glucose 124 H (65-100) mg/dL Total Protein 6.0 L (6.3-8.2) g/dL Albumin 3.0 L (3.9-5) g/dL Urine WBC (Auto) (0.0-6.0) /HPF 09/18/20 Range/Units 21:00 WBC (4.5-11.0) K/mm3 Hgb (10.1-14.3) gm/dl Hct (30.3-42.9) % MCV (79-97) fl MCH (28-32) pg RDW (13.2-15.2) % Seg Neuts % (Manual) (40.0-70.0) % Lymphocytes % (Manual) (13.4-35.0) % Seg Neutrophils # Man (1.8-7.7) K/mm3 Monocytes # (Manual) (0.0-0.8) K/mm3 Potassium (3.6-5.0) mmol/L BUN (7-17) mg/dL Creatinine (0.6-1.2) mg/dL Glucose (65-100) mg/dL Total Protein (6.3-8.2) g/dL Albumin (3.9-5) g/dL Urine WBC (Auto) 43.0 H (0.0-6.0) /HPF
[2020-09-19] MEDS: DOCUSATE SODIUM 100 MG CAP PO SCH (09:48)
[2020-09-19] MEDS: PRENATAL VIT27-FE FUMARATE-FOLIC ACID VIT TAB PO SCH (09:49)
[2020-09-19 09:53] LABS: Basophils % (Auto) 0.2 % (0.0-1.8); Eosinophils # (Auto) 0.2 K/mm3 (0.0-0.4); Hematocrit 23.8 % (30.3-42.9); Hemoglobin 7.4 gm/dl (10.1-14.3); Lymphocytes # (Auto) 1.7 K/mm3 (1.2-5.4); Lymphocytes % (Auto) 11.4 % (13.4-35.0); Mean Corpuscular HGB Conc 31 % (30-34); Monocytes # (Auto) 1.1 K/mm3 (0.0-0.8); Monocytes % (Auto) 7.4 % (0.0-7.3); Platelet Count 324 K/mm3 (140-440); Red Blood Count 3.61 M/mm3 (3.65-5.03); Red Cell Distribution Width 19.2 % (13.2-15.2)
[2020-09-19 09:55] LABS: Mean Corpuscular Volume 66 fl (79-97)
--- NOTE | 2020-09-19 10:01 | Discharge Summary ---
Providers - Providers Date of Admission: 09/16/20 19:28 Date of discharge: 09/19/20 Attending physician: MYRNA PURVIS JR, MD 09/17/20 04:44 Consult to [employer] [CONS] Routine Reason For Exam: assistance with , SNS 09/18/20 10:37 Consult to Physician [CONS] Routine Comment: Consulting Provider: HAWA MARION Physician Instructions: please assess pt had 09/17 and now has hypoten Reason For Exam: hypotension Primary care physician: MYRNA PURVIS JR, MD Hospitalization Reason for admission: active labor, IUP at term Delivery: vacuum extraction Episiotomy: mediolateral Laceration: none Incision: normal, intact Other procedures: other (triple abt, uti, vag monqiue infection, hospitalist consult for hypotencion, anesthesia consult for headaches) complications: spinal headache, UTI Discharge diagnosis: IUP at term delivered [place] baby: male Hospital course: Pt was admitted in labor and had a VAD. She dev a uti and vag yeast infec pp. She received triple abt and Diflucan. She was seen by anesthesia for headaches and by the hospitalist for hypotension. Pt stated she felt much better and was d/c'd home today per Dr Ortega. Condition at discharge: Stable Disposition: 30 STILL A PATIENT Plan - Discharge Medications Prescriptions: Ferrous Sulfate [Feosol 325 MG tab] 325 mg PO BID #120 tablet Ibuprofen [Motrin 600 MG tab] 600 mg PO Q6HR PRN #30 tablet PRN Reason: Menstrual Cramps - Provider Discharge Summary Activity: routine, no sex for 6 weeks, no heavy lifting 4 weeks, no strenuous exercise Diet: routine Instructions: routine Additional instructions: [] Smoking cessation referral if applicable(refer to patient education folder for contact #) [] Refer to [facility] Booklet Call your doctor immediately for: * Fever > 100.5 * Heavy vaginal bleeding ( >1 pad per hour) * Severe persistent headache * Shortness of breath * Reddened, hot, painful area to leg or breast * Drainage or odor from incision. * Keep incision clean and dry at all times and follow doctor's instructions regarding bathing/showering f/u with pcp if headaches persist and re hypotension - Follow up plan Follow up: MYRNA PURVIS JR, MD [Primary Care Provider] - 6 Weeks
[2020-09-19 10:02] LABS: Alanine Aminotransferase 10 units/L (7-56); Albumin 2.6 g/dL (3.9-5); Blood Urea Nitrogen 5 mg/dL (7-17); Calcium 8.7 mg/dL (8.4-10.2); Hemolysis Index 2
[2020-09-19 10:05] LABS: BUN/Creatinine Ratio 10
[2020-09-19] MEDS: PANTOPRAZOLE 40 MG INJ IV SCH (10:22)
[2020-09-19] MEDS: FERROUS SULFATE 325 MG TAB PO SCH (10:22)
[2020-09-19 11:35] VITALS: BP 101/56
== END 2020-09-19 11:35 | disposition home or self-care (01) | DRG 806 ==
LOC: TRG 15:29 → APU 15:35 → TRG 19:28 → LD 19:28 → OB 09-17 06:25
PROVIDERS: ADMIT Obstetrics & Gynecology; ATTEND Obstetrics & Gynecology
PROC: 10D07Z6 Extraction of Products of Conception, Vacuum, Via Natural or Artificial Opening (ICD-10-PCS; principal; 2020-09-17)
PROC: 3E0R3BZ Introduction of Anesthetic Agent into Spinal Canal, Percutaneous Approach (ICD-10-PCS; 2020-09-17)
PROC: 00HU33Z Insertion of Infusion Device into Spinal Canal, Percutaneous Approach (ICD-10-PCS; 2020-09-17)
PROC: 0W8NXZZ Division of Female Perineum, External Approach (ICD-10-PCS; 2020-09-17)
DX: O42.02 Full-term premature rupture of membranes, onset of labor within 24 hours of rupture (principal); O72.1 Other immediate postpartum hemorrhage; Z37.0 Single live birth; O86.20 Urinary tract infection following delivery, unspecified; O98.83 Other maternal infectious and parasitic diseases complicating the puerperium; R65.10 Systemic inflammatory response syndrome (SIRS) of non-infectious origin without acute organ dysfunction; I95.9 Hypotension, unspecified; O75.89 Other specified complications of labor and delivery; D72.829 Elevated white blood cell count, unspecified; Z20.822 Contact with and (suspected) exposure to COVID-19; B37.3 Candidiasis of vulva and vagina; O99.02 Anemia complicating childbirth; Z3A.38 38 weeks gestation of pregnancy
CPT/HCPCS: 36415; 59025; 80053; 81001; 82565; 82962; 85007; 85014; 85018; 85025; 85027; 85610; 85730; 86850; 86900; 86901; 87040; 87086; 96360; 99211; G0378; G0463; J0290; J0461; J1580; J2405; J2590; J2710; J7120; U0003